=== PATIENT | male | born 1955 | race Caucasian/White ===

== ENCOUNTER 2017-04-27 11:26 | Day surgery (SDC) | payer BC ==
[~2017-04-27] VITALS: Ht 175.3 cm; Wt 82.0 kg
[~2017-04-27 11:26] MED LIST: ASPIRIN325 MG PO; ATORVASTATIN CA40 MG PO; BUSPAR10 MG PO; CITALOPRAM HBR40 MG PO; ESOMEPRAZOLE MA40 MG PO; FLOMAX0.4 MG PO; JANUVIA100 MG PO; METOPROLOL SUCC25 MG PO; NOVOLOG PE100 UNITS/ SC; VALSARTAN160 MG PO
[2017-04-27 12:36] LABS: POINT-OF-CARE METER ID UU13113696
== END 2017-04-27 19:12 | disposition home or self-care (01) ==
LOC: CATH 11:26
PROVIDERS: Internal Medicine Cardiovascular Disease
DX: I25.10 Atherosclerotic heart disease of native coronary artery without angina pectoris (principal); T82.855A Stenosis of coronary artery stent, initial encounter; I10 Essential (primary) hypertension; E78.5 Hyperlipidemia, unspecified; E11.9 Type 2 diabetes mellitus without complications; I25.2 Old myocardial infarction; I47.1 Supraventricular tachycardia; R53.82 Chronic fatigue, unspecified; Z95.5 Presence of coronary angioplasty implant and graft; Z79.82 Long term (current) use of aspirin; Z79.84 Long term (current) use of oral hypoglycemic drugs
CPT/HCPCS: 82948; C1769; C1887; J1644; J2250; J3010; J7040